=== PATIENT | male | born 1985 | race American Indian/Alaskan Native ===

== ENCOUNTER 2019-05-14 16:17 | Emergency (ER) | payer SELFPAY ==
--- NOTE | 2019-05-14 18:19 | Emergency Department Report ---
ED General Adult HPI - General Chief complaint: Fever Stated complaint: FEVER/COUGH Time Seen by Provider: 05/14/19 18:18 Source: patient Mode of arrival: Ambulatory Limitations: No Limitations - History of Present Illness Initial comments: 34-year-old male with no past medical history presents with a complaint of fever. Patient also complains of cough and right chest wall and right abdominal pain. Patient denies any vomiting. Patient denies any diarrhea. Patient denies any recent travel and states he does not know any close contacts with her been recently quarantined. Patient complains of body aches. Patient denies sore throat - Related Data Previous Rx's Medication Instructions Recorded Last Taken Type Acetaminophen [Tylenol] 325 mg PO Q6HR #20 capsule 05/14/19 Unknown Rx Allergies Allergy/AdvReac Type Severity Reaction Status Date / Time No Known Allergies Allergy Verified 05/14/19 17:01 ED Review of Systems ROS: Stated complaint: FEVER/COUGH Other details as noted in HPI Constitutional: fever Eyes: denies: eye pain, eye discharge, vision change ENT: denies: ear pain, throat pain Respiratory: denies: cough, shortness of breath, wheezing Cardiovascular: denies: chest pain, palpitations Endocrine: no symptoms reported Gastrointestinal: denies: abdominal pain, nausea, diarrhea Genitourinary: denies: urgency, dysuria Musculoskeletal: denies: back pain, joint swelling, arthralgia Skin: denies: rash, lesions Neurological: denies: headache, weakness, paresthesias Psychiatric: denies: anxiety, depression Hematological/Lymphatic: denies: easy bleeding, easy bruising ED Past Medical Hx - Past Medical History Previous Medical History?: No - Surgical History Past Surgical History?: No - Social History Smoking Status: Never Smoker Substance Use Type: None, Alcohol - Medications Home Medications: Home Medications Medication Instructions Recorded Confirmed Last Taken Type Acetaminophen [Tylenol] 325 mg PO Q6HR #20 capsule 05/14/19 Unknown Rx ED Physical Exam - General Limitations: No Limitations General appearance: alert, other (Mildly uncomfortable;) - Head Head exam: Present: atraumatic, normocephalic - Eye Eye exam: Present: normal appearance - ENT ENT exam: Present: mucous membranes moist, other (No tonsillar erythema or exudate) - Neck Neck exam: Present: normal inspection, other (No meningeal signs) - Respiratory Respiratory exam: Present: normal lung sounds bilaterally. Absent: respiratory distress - Cardiovascular Cardiovascular Exam: Present: regular rate, normal rhythm. Absent: systolic murmur, diastolic murmur, rubs, gallop - GI/Abdominal GI/Abdominal exam: Present: soft, tenderness (Mild tenderness noted in the right upper quadrant), normal bowel sounds. Absent: guarding, rebound - Rectal Rectal exam: Present: deferred - Extremities Exam Extremities exam: Present: normal inspection - Back Exam Back exam: Present: normal inspection - Neurological Exam Neurological exam: Present: alert, oriented X3 - Psychiatric Psychiatric exam: Present: normal affect, normal mood - Skin Skin exam: Present: warm, dry, intact, normal color. Absent: rash ED Course Vital Signs 05/14/19 05/14/19 05/14/19 17:01 20:32 22:00 Temperature 102.6 F H 97.9 F Pulse Rate 86 82 81 Respiratory 16 16 16 Rate Blood Pressure 132/81 Blood Pressure 135/77 126/78 [Left] O2 Sat by Pulse 99 97 96 Oximetry ED Medical Decision Making - Lab Data Result diagrams: 05/14/19 18:54 05/14/19 18:54 - Medical Decision Making Patient has a negative flu. Patient patient has improved. Patient's chest x- ray is negative. Patient is suspected COVID 19 and online form was performed. Patient discharged with Tylenol therapy. - Differential Diagnosis Viral Illness; pneumonia; dehydration; anemia Critical care attestation.: If time is entered above; I have spent that time in minutes in the direct care of this critically ill patient, excluding procedure time. ED Disposition Clinical Impression: Viral illness, Chest wall pain Disposition: - TO HOME OR SELFCARE Is pt being admited?: No Does the pt Need Aspirin: No Condition: Stable Instructions: Chest Pain (ED), Viral Syndrome (ED) Prescriptions: Acetaminophen [Tylenol] 325 mg PO Q6HR #20 capsule Referrals: PRIMARY CARE, [Primary Care Provider] - 3-5 Days Time of Disposition: 23:55 Print Language: LAO
[2019-05-14] MEDS ORDERED: SODIUM CHLORIDE 0.9% 1000 ML IV SOLN IV ONE (18:20)
[2019-05-14] MEDS ORDERED: ACETAMINOPHEN 500 MG TAB PO ONE (18:26)
[2019-05-14 19:11] LABS: Hematocrit 35.1 % (35.5-45.6); Hemoglobin 11.3 gm/dl (11.8-15.2); Mean Corpuscular HGB Conc 32 % (32-34); Mean Corpuscular Volume 91 fl (84-94); Platelet Count 112 K/mm3 (140-440); Red Blood Count 3.85 M/mm3 (3.65-5.03); Red Cell Distribution Width 13.2 % (13.2-15.2)
[2019-05-14 19:18] LABS: Bilirubin,Urine NEG (Negative); Blood,Urine NEG (Negative); Color,Urine Yellow (Yellow); Mucus,Urine FEW /HPF; Protein,Urine <15 mg/dL mg/dL (Negative); Urobilinogen,Urine < 2.0 mg/dL (<2.0)
[2019-05-14 19:34] LABS: Alanine Aminotransferase 26 units/L (7-56); Albumin 4.1 g/dL (3.9-5); BUN/Creatinine Ratio 8; Blood Urea Nitrogen 11 mg/dL (9-20); Calcium 9.2 mg/dL (8.4-10.2); Hemolysis Index 11
--- NOTE | 2019-05-14 20:31 | XRay Report ---
CHEST 1 VIEW INDICATION / CLINICAL INFORMATION: shortness of breath. COMPARISON: None available. FINDINGS: SUPPORT DEVICES: None. HEART / MEDIASTINUM: No significant abnormality. LUNGS / PLEURA: No significant pulmonary or pleural abnormality. No pneumothorax. ADDITIONAL FINDINGS: No significant additional findings. IMPRESSION: 1. No significant change Signer Name: Regan Salvador MD Signed: 05/14/2019 8:27 PM Workstation Name: [id number]
--- NOTE | 2019-05-14 20:35 | Cat Scan Report ---
CT ABDOMEN AND PELVIS WITHOUT CONTRAST INDICATION / CLINICAL INFORMATION: abdominal pain. TECHNIQUE: Axial CT images were obtained through the abdomen and pelvis without IV contrast. All CT scans at [facility] are performed using CT dose reduction for ALARA by means of automated exposure control. COMPARISON: None available. FINDINGS: LOWER CHEST: Mild cardiomegaly. The lung bases are clear. No pleural fluid is identified. LIVER: No significant abnormality. GALLBLADDER: Almost entirely collapsed. No calcified stones identified. BILE DUCTS: No significant abnormality. PANCREAS: Unremarkable within limitations imposed by noncontrast technique. SPLEEN: No significant abnormality. ADRENALS: No significant abnormality. RIGHT KIDNEY and URETER: No significant abnormality. LEFT KIDNEY and URETER: No significant abnormality. STOMACH and SMALL BOWEL: The patient drank a small volume of enteric contrast, but this had not progr essed significantly beyond the stomach at the time of image acquisition. No acute inflammatory or obs tructive changes identified. COLON: No significant abnormality. APPENDIX: Normal appendix is seen. PERITONEUM: No free fluid. No free air. No fluid collection. LYMPH NODES: No adenopathy identified within limitations imposed by noncontrast technique. AORTA and ARTERIES: Unremarkable noncontrast appearance. No significant atherosclerosis. No aneurysm. IVC and VEINS: Unremarkable noncontrast appearance. URINARY BLADDER: No significant abnormality. REPRODUCTIVE ORGANS: No significant abnormality. SKELETAL SYSTEM: No significant abnormality. IMPRESSION: 1. No acute abnormality. 2. Mild cardiomegaly. Signer Name: Erasmo Perales MD Signed: 05/14/2019 8:31 PM Workstation Name: [id number]
[2019-05-14 23:34] VITALS: BP 126/78
== END 2019-05-15 01:00 | disposition home or self-care (01) ==
LOC: ED 16:17
DX: B34.9 Viral infection, unspecified (principal); R07.89 Other chest pain
CPT/HCPCS: 36415; 71045; 74176; 80053; 81001; 82140; 85027; 87040; 87400; 99284; J7030